=== PATIENT | female | born 1955 | race Caucasian/White ===

== ENCOUNTER 2025-01-14 07:45 | Emergency (ER) | payer MEDICARE, MEDICAID, SELFPAY ==
[2025-01-14] VITALS (7 sets, daily range): BP systolic 134–157; BP diastolic 79–102; PULSE 96–116; RESP 18–24; TEMP 36.5–36.7; O2SAT 95–100; BMI 23.3
--- NOTE | 2025-01-14 08:10 | EKG_ITS ---
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
--- NOTE | 2025-01-14 08:10 | PD.EDADULT ---
ED General RME/HPI General Chief complaint: Shortness of Breath/Dyspnea Stated complaint: SHORTNESS OF BREATH Time Seen by Provider: 01/14/25 08:09 Arrival date/time: 01/14/25 07:45 RME / HPI RME / HPI narrative: see MDM Related Data Home Medications ?Medication ?Instructions ?Recorded ?Confirmed albuterol sulfate 90 mcg/actuation 2 puff inhalation Q4HR PRN PRN ##0 06/13/13 08/22/21 aerosol inhaler (ProAir HFA) albuterol sulfate 2.5 mg/3 mL 2.5 mg HHN QID #0 ea 05/01/15 08/22/21 (0.083 %) solution for nebulization Sertraline Hcl 50 mg PO QDAY ##30 08/21/16 08/22/21 amitriptyline 25 mg tablet 25 mg PO QPM 08/22/21 08/22/21 azithromycin 250 mg tablet 250 mg PO QDAY 08/22/21 08/22/21 fluticasone 500 mcg-salmeterol 50 1 inh inhalation BID 08/22/21 08/22/21 mcg/dose blistr powdr for inhalation (Advair Diskus) melatonin 5 mg tablet 5 mg PO QPM 08/22/21 08/22/21 Previous Rx's ?Medication ?Instructions ?Recorded hydrocodone 5 mg-acetaminophen 325 1 tab PO BID PRN pain #10 tabs 01/10/22 mg tablet ibuprofen 800 mg tablet 800 mg PO TID PRN pain #30 tabs 01/10/22 azithromycin 250 mg tablet See Rx Instructions PO .COMPLEX #4 01/14/25 tabs prednisolone 5 mg (21 tabs) 5 mg PO QDAY #21 tabs 01/14/25 tablets in a dose pack Allergies Allergy/AdvReac Type Severity Reaction Status Date / Time niacin Allergy Severe UNKNOWN Verified 01/10/22 10:53 simvastatin Allergy Severe UNKNOWN Verified 01/10/22 10:53 Review of Systems Review of Systems Systems Reviewed: All systems reviewed, normal except as documented ED Exam Narrative Physical exam: Physical Exam GENERAL: NAD, AAOx3 HEENT: Moist mucosa. Eyes open, symmetrical, & clear CARDIO: Heart RRR, no obvious murmurs PULM: dyspnea, B/L wheezing GI: Abdomen soft, nondistended, no pain on palpation. BSx4 SKIN/MSK/EXT: No wounds/rashes/edema/amputations, no pain on palpation. Pedal pulses present B/L NEURO: AAOx3, no focal neuro deficits, able to move all 4 extremities Course Quality Measures none Orders Category Date Time Status EKG (ED ONLY) *Do not use* NOW Care 01/14/25 08:10 Completed Insert IV NOW Care 01/14/25 08:11 Completed CXRP [XR chest 1V portable] Stat Exams 01/14/25 08:13 Completed EKG (ED Only) Stat Exams 01/14/25 08:10 Draft CBC Stat Lab 01/14/25 08:00 Completed CMP [Comprehensive Metabolic Panel] Stat Lab 01/14/25 08:00 Completed Lactic Acid [Lactate (Lactic Acid)] Stat Lab 01/14/25 08:00 Completed Lactic Acid, 3 HR Stat Lab 01/14/25 12:01 Completed Albuterol/Ipratr Rt Mami [Duoneb Rt Mami] Med 01/14/25 08:13 Discontinued 3 ml INH X1 ONE Albuterol/Ipratr Rt Mami [Duoneb Rt Mami] Med 01/14/25 12:34 Discontinued 3 ml INH X1 ONE Azithromycin Po [Zithromax PO] Med 01/14/25 08:13 Discontinued 500 mg PO X1 ONE MethylPREDNISolone.* [SoluMEDROL Inj] Med 01/14/25 08:13 Discontinued 125 mg IVP X1 ONE Ringers Lactated 1000 ml [Lactated Ringers] 1,000 ml Med 01/14/25 08:35 Discontinued IV 999 mls/hr Ringers Lactated 1000 ml [Lactated Ringers] 1,000 ml Med 01/14/25 12:53 Discontinued IV 999 mls/hr Vital Signs Vital signs: Vital Signs Temperature 97.7 F 01/14/25 07:54 Pulse Rate 111 H 01/14/25 07:54 Respiratory Rate 24 H 01/14/25 07:54 Blood Pressure 134/88 H 01/14/25 07:54 Pulse Oximetry (%) 99 01/14/25 07:54 Oxygen Delivery Method Aerosol Mask 01/14/25 07:54 Oxygen Flow Rate 6 01/14/25 07:54 Discharge Plan Plan Patient Disposition: HOME (Self Care) Prescriptions/Referrals Prescriptions/Med Rec: New prednisolone 5 mg (21 tabs) tablets,dose pack 5 mg PO QDAY Qty: 21 0RF azithromycin 250 mg tablet See Rx Instructions .ROUTE .COMPLEX Qty: 4 0RF Rx Instructions: For 250 mg dose pack: take 500 mg today (day 1), then 250 mg for 4 days (days 2-5), as instructed in dose pack No Action albuterol sulfate [ProAir HFA] 8.5 GM HFA aerosol inhaler 2 puff Inhalation Q4HR PRN (Reason: PRN) Qty: 0 albuterol sulfate 2.5 MG/0.5 ML solution for nebulization 2.5 mg HHN QID Qty: 0 Sertraline Hcl 50 MG tablet 50 mg PO QDAY Qty: 30 azithromycin 250 mg Tablet 250 mg PO QDAY Rx Instructions: TAKE 2 TABLETS BY MOUTH ON DAY ONE THEN 1 TABLET FOR THE NEXT 4 DAYS amitriptyline 25 mg tablet 25 mg PO QPM Rx Instructions: TAKE 1-2 TABLETS IN THE EVEING melatonin 5 mg Tablet 5 mg PO QPM fluticasone propion-salmeterol [Advair Diskus] 500-50 mcg/dose Blister With Device 1 inh INHALATION BID ibuprofen 800 mg tablet 800 mg PO TID PRN (Reason: pain) Qty: 30 0RF hydrocodone-acetaminophen 5-325 mg tablet 1 tab PO BID MDD 10 PRN (Reason: pain) Qty: 10 0RF Referrals: Gabe Jerez PA-C [Primary Care Provider] - In 1 week Problem List Clinical Impression: COPD (chronic obstructive pulmonary disease) Patient/Caregiver Discharge Instructions Additional Instructions: Follow up with a primary care physician within 1 week of discharge. You have been prescribed azithromycin for an additional 4 days as well as prednisone for your COPD Should your symptoms recur or worsen patient is instructed to return to the ED. Print Language: Tajik Stand Alone Forms: [employer] Award Info., Patient Portal Info Letter MDM Narrative MDM hospital course: 69 y/o F with PMHx of COPD (no home O2) who presented to the ED due to shortness of breath. Patient states onset of symptoms was around 5-6 days ago that has continued to progress it got to the point where she stated she was unable to breath and called the ambulance. She endorses a productive cough with thick yellow sputum. She denies fever, chills, chest pain, palpitations, nausea, vomiting, abdominal pain. 0815: Labs, CXR, solumedrol 125mg IVx1 and Duonebs ordered, azithromycin 0930: CBC, CMP unremarkable 1246: Patient continues to be wheezing bilaterally, ordered additional duonebs 1350: On re-evaluation patient was taken off oxygen and wheezing has improved significantly after additional Duonebs Patient wishes to go home and can be safely discharged with strict return precautions. Prescription for azithromycin and prednisone ordered Patient instructed should her symptoms recur or worsen patient should return to the ED. Clinical Information Provided by patient Medical Records Reviewed [facility] Chronic Illness/Social Conditions which may negatively complicate care or outcome(s)-explain: COPD EKG EKG not done Lab Interpretation Labs: interpreted by mt Lab(s) interpretation(s): CBC unreamrkable, CMP unremarkable, lactic acid elevated likely in the setting of steroid medications. Imaging Imaging interpretation: none Radiology reports / interpretation(s): see radiology report Medication Administration(s) Medication Administration History Discontinued Medications Albuterol/Ipratropium (Albuterol/Ipratropium (Duoneb) Rt Mami 3 Ml Nebu) 3 ml INH X1 ONE Stop: 01/14/25 08:14 Last Admin: 01/14/25 08:30 Dose: 3 ml Documented By: ADAM Albuterol/Ipratropium (Albuterol/Ipratropium (Duoneb) Rt Mami 3 Ml Nebu) 3 ml INH X1 ONE Stop: 01/14/25 12:35 Last Admin: 01/14/25 13:18 Dose: 3 ml Documented By: ADAM Azithromycin (Azithromycin 250 Mg Tablet) 500 mg PO X1 ONE Stop: 01/14/25 08:14 Last Admin: 01/14/25 08:24 Dose: 500 mg Documented By: PARMINDER Lactated Ringer's (Lactated Ringers) 1,000 mls @ 999 mls/hr IV .Q1H1M ONE Stop: 01/14/25 09:35 Last Infusion: 01/14/25 10:07 Dose: Infused Documented By: Admin: 01/14/25 08:48 Dose: 999 mls/hr Documented By: PARMINDER Lactated Ringer's (Lactated Ringers) 1,000 mls @ 999 mls/hr IV .Q1H1M ONE Stop: 01/14/25 13:53 Methylprednisolone Sodium Succinate (Methylprednisolone Sod Succ 62.5 Mg/Ml 2ml Vial) 125 mg IVP X1 ONE Stop: 01/14/25 08:14 Last Admin: 01/14/25 08:25 Dose: 125 mg Documented By: DB see above Diagnosis Differential diagnosis: COPD exacerbation, Pneumonia, CHF Most likely dx, and/or detailed dx discussion: COPD exacerbation Dispositon Disposition: Discharge Home
--- NOTE | 2025-01-14 08:13 | XR_ITS ---
Examination: Chest AP single view Technique: AP portable upright chest single view. Date and time: January 14, 2025, 0826 hrs. Comparison January 10, 2022 Indications: Shortness of breath chest pain today. Findings: Normal heart size. No pneumonia or pulmonary edema. Moderate osteopenia Impression: No pneumonia or pulmonary edema.
[2025-01-14 08:24] LABS: Lactate (Lactic Acid) 2.1 mMol/L (0.4-2.0)
[2025-01-14] MEDS: AZITHROMYCIN 250 MG TABLET 500 MG PO (08:24)
[2025-01-14] MEDS: MethylPREDNISolone SOD SUCC 62.5 MG/ML 2ML VIAL 125 MG IVP (08:25)
[2025-01-14 08:29] LABS: Basophils # (Auto) 0.1 Thou/mm3 (0.0-0.2); Basophils % (Auto) 1 % (0-2.5); Eosinophils # (Auto) 0.9 Thou/mm3 (0.0-0.5); Eosinophils % (Auto) 9 % (0-10); Hematocrit 44.2 % (36.0-46.0); Hemoglobin 15.2 g/dL (12.0-16.0); Immature Granulocytes Auto 0.06 Thou/mm3 (0.00-0.00); Lymphocytes # (Auto) 4.3 Thou/mm3 (1.0-4.8); Lymphocytes % (Auto) 41 % (10-50); Mean Corpuscular HGB Conc 34.4 g/dl (31.0-37.0); Mean Corpuscular Hemoglobin 28.0 pg (25.0-35.0); Mean Corpuscular Volume 81 fL (80-100); Monocytes # (Auto) 0.9 Thou/mm3 (0.0-0.8); Monocytes % (Auto) 8 % (0-12); Neutrophils # (Auto) 4.2 Thou/mm3 (1.8-7.7); Neutrophils % (Auto) 40 % (37-80); Nucleated Red Blood Cell # 0.00 Thou/mm3 (0.00-0.00); Nucleated Red Blood Cell % 0 /100 WBC (0); Platelet Count 269 Thou/mm3 (140-440); RDW Standard Deviation 42.6 fL (36.4-46.3); Red Blood Count 5.43 Miln/mm3 (4.00-5.20); White Blood Count 10.5 Thou/mm3 (3.6-11.0)
[2025-01-14] MEDS: ALBUTEROL/IPRATROPIUM (Duoneb) RT SOL 3 ML NEBU INH ×2 (08:30→13:18)
[2025-01-14] MEDS: RINGERS LACTATED 1000 ML 1,000 ML 999 ML IV (08:48)
[2025-01-14 08:50] LABS: Alanine Aminotransferase 16 U/L (10-49); Albumin, Serum 4.7 gm/dL (3.4-4.8); Albumin/Globulin Ratio 1.7 (1.2-2.2); Alkaline Phosphatase 91 U/L (46-116); Anion Gap 11 (7-16); Aspartate Amino Transferase 19 U/L (0-34); BUN/Creatinine Ratio 14 Ratio (12-20); Bilirubin,Total 0.3 mg/dL (0.3-1.2); Blood Urea Nitrogen 14 mg/dL (9-23); Calcium 9.0 mg/dL (8.3-10.6); Calcium (Corrected) 9.0 mg/dL (8.5-10.1); Carbon Dioxide 25.2 mMol/L (20.0-31.0); Chloride 107 mMol/L (98-107); Creatinine (Component) 1.0 mg/dL (0.6-1.3); Estimated Creatinine Clearance 50.4 mL/min (>60); Globulin 2.7 gm/dL (2.3-3.5); Glucose 105 mg/dL (74-106); Osmolality,Calculated 285 (275-295); Potassium 3.6 mMol/L (3.4-5.1); Sodium 143 mMol/L (136-145); Total Protein 7.4 gm/dL (5.7-8.2); eGFR > 60 See Note
[2025-01-14 11:22] LABS: Reflex Lactate? Y
[2025-01-14 12:05] LABS: Lactic Acid, 3 HR 3.3 mMol/L (0.4-2.0)
== END 2025-01-14 13:55 | disposition home or self-care (01) ==
PROVIDERS: Student in an Organized Health Care Education/Training Program; Emergency Provider Family Medicine; PCP Physician Assistant
DX: J44.9 Chronic obstructive pulmonary disease, unspecified (principal); R00.0 Tachycardia, unspecified
CPT/HCPCS: 36415; 71045; 80053; 83605; 85025; 93005; 94640; 96361; 96374; 99284; A9270; J2919; J7120